=== PATIENT | female | born 1985 | race Caucasian/White ===

== ENCOUNTER → 2020-03-23 | Emergency (ER) | payer OTHER ==
[~2020-03-23] VITALS: Ht 172.7 cm; Wt 77.1 kg
[~2020-03-23] MED LIST: AMOXICILLIN 50500 MG PO; BACTRIM DS TAB1 EACH PO; IBU800 MG PO; KEFLEX500 MG PO; NORCO 5-325 TA1 EAC2 PO; NORCO 5-325 TA1 EACH PO; TRAMADOL 50 MG50 MG PO
[2020-03-23 14:59] VITALS: BP 152/101
== END ==
LOC: M.ERS 14:44
DX: K04.7 Periapical abscess without sinus (principal); J45.909 Unspecified asthma, uncomplicated